=== PATIENT | male | born 1990 | race Caucasian/White ===

== ENCOUNTER 2020-11-12 16:42 | Emergency (ER) | payer OTHER ==
[~2020-11-12] VITALS: Ht 167.6 cm; Wt 81.7 kg
[~2020-11-12 16:42] MED LIST: IBUP400 PO; Ultram50 MG PO
== END 2020-11-12 16:53 | disposition home or self-care (01) ==
LOC: ER 16:42
DX: S01.01XD Laceration without foreign body of scalp, subsequent encounter (principal); F17.210 Nicotine dependence, cigarettes, uncomplicated; Z88.0 Allergy status to penicillin; Z88.5 Allergy status to narcotic agent; W45.8XXD Other foreign body or object entering through skin, subsequent encounter

== ENCOUNTER 2021-09-28 20:42 | Emergency (ER) | payer OTHER ==
[~2021-09-28] VITALS: Ht 182.9 cm; Wt 74.8 kg
== END 2021-09-28 21:33 | disposition home or self-care (01) ==
LOC: ER 20:42
DX: H60.92 Unspecified otitis externa, left ear (principal); F17.210 Nicotine dependence, cigarettes, uncomplicated; Z88.5 Allergy status to narcotic agent; Z88.0 Allergy status to penicillin
CPT/HCPCS: 99282; A9270

== ENCOUNTER 2021-12-05 18:32 | Emergency (ER) | payer OTHER ==
[~2021-12-05] VITALS: Ht 177.8 cm; Wt 86.2 kg
[2021-12-05] MEDS ORDERED: Diflucan100 MG PO (19:56)
[2021-12-05] MEDS ORDERED: NYAMYC15 G2 TOP (19:56)
== END 2021-12-05 20:13 | disposition home or self-care (01) ==
LOC: ER 18:32
DX: B35.6 Tinea cruris (principal); F17.200 Nicotine dependence, unspecified, uncomplicated; Z88.0 Allergy status to penicillin; Z88.5 Allergy status to narcotic agent
CPT/HCPCS: A9270

== ENCOUNTER 2022-01-03 04:36 | Emergency (ER) | payer OTHER ==
[~2022-01-03] VITALS: Ht 175.3 cm; Wt 72.6 kg
[~2022-01-03 04:36] MED LIST changes: +Diflucan100 MG PO; +NYAMYC15 G2 TOP
[2022-01-03] MEDS ORDERED: ALEVAZOL56.7 G1 TOP (05:09)
[2022-01-03] MEDS ORDERED: Diflucan150 MG PO (05:09)
== END 2022-01-03 05:27 | disposition home or self-care (01) ==
LOC: ER 04:36
DX: Z76.0 Encounter for issue of repeat prescription (principal); B35.6 Tinea cruris; F17.200 Nicotine dependence, unspecified, uncomplicated; Z88.0 Allergy status to penicillin; Z88.5 Allergy status to narcotic agent
CPT/HCPCS: 99281

== ENCOUNTER 2022-01-10 10:38 | Emergency (ER) | payer OTHER ==
[~2022-01-10] VITALS: Ht 172.7 cm; Wt 88.5 kg
[~2022-01-10 10:38] MED LIST changes: +ALEVAZOL56.7 G1 TOP; +Diflucan150 MG PO
[2022-01-10] MEDS ORDERED: Diflucan150 MG PO ×4 (11:05→11:53)
[2022-01-10] MEDS ORDERED: ALEVAZOL56.7 G1 TOP ×4 (11:05→11:53)
== END 2022-01-10 11:22 | disposition home or self-care (01) ==
LOC: ER 10:38
DX: Z76.0 Encounter for issue of repeat prescription (principal); B35.6 Tinea cruris; F17.200 Nicotine dependence, unspecified, uncomplicated; Z88.5 Allergy status to narcotic agent; Z88.0 Allergy status to penicillin
CPT/HCPCS: 99282

== ENCOUNTER 2022-01-17 05:11 | Emergency (ER) | payer OTHER ==
[2022-01-17] MEDS ORDERED: NYAMYC15 G1 TOP (06:48)
== END 2022-01-17 07:12 | disposition home or self-care (01) ==
LOC: ER 05:11
DX: Z76.0 Encounter for issue of repeat prescription (principal); B35.6 Tinea cruris; F17.210 Nicotine dependence, cigarettes, uncomplicated; Z88.5 Allergy status to narcotic agent; Z88.0 Allergy status to penicillin; Z79.899 Other long term (current) drug therapy
CPT/HCPCS: 99281

== ENCOUNTER 2022-01-23 17:03 | Emergency (ER) | payer OTHER ==
[~2022-01-23] VITALS: Ht 177.8 cm; Wt 81.7 kg
[~2022-01-23 17:03] MED LIST changes: +NYAMYC15 G1 TOP
== END 2022-01-23 21:31 | disposition left against medical advice (07) ==
LOC: ER 17:03
DX: L98.9 Disorder of the skin and subcutaneous tissue, unspecified (principal); Z53.21 Procedure and treatment not carried out due to patient leaving prior to being seen by health care provider
CPT/HCPCS: 99281

== ENCOUNTER 2023-01-29 12:39 | Emergency (ER) | payer OTHER ==
[~2023-01-29] VITALS: Ht 175.3 cm; Wt 74.8 kg
[~2023-01-29 12:39] MED LIST changes: +Percocet 5-3251 EACH PO
[2023-01-29 13:51] LABS: BASOPHILS ABSOLUTE AUTO 0.08 K/mm3 (0.00-0.23); BASOPHILS PERCENT AUTO 1 % (0-2); EOSINOPHILS ABSOLUTE AUTO 0.19 K/mm3 (0.00-0.68); EOSINOPHILS PERCENT AUTO 2 % (0-6); Hematocrit 39.5 % (37.0-53.0); Hemoglobin 13.4 g/dL (13.5-17.5); IMMATURE GRAN ABSOLUTE AUTO 0.02 K/mm3 (0.00-0.10); IMMATURE GRAN PERCENT AUTO 0 % (0-1); LYMPHOCYTES ABSOLUTE AUTO 3.52 K/mm3 (0.84-5.20); LYMPHOCYTES PERCENT AUTO 35 % (21-46); MONOCYTES ABSOLUTE AUTO 0.76 K/mm3 (0.16-1.47); MONOCYTES PERCENT AUTO 8 % (4-13); Mean Corpuscular HGB 31.8 pg (26.0-34.0); Mean Corpuscular HGB Conc 33.9 g/dL (31.5-36.5); Mean Corpuscular Volume 94 fL (80-100); Mean Platelet Volume 11.4 fL (9.1-12.4); NEUTROPHILS PERCENT AUTO 55 % (41-73); Platelet Count 265 K/mm3 (150-400); RDW Coefficient Variation 12.2 % (11.7-14.2); RDW Standard Deviation 42.4 fL (35.1-46.3); Red Blood Cell Count 4.21 M/mm3 (4.30-5.90); White Blood Cell Count 10.07 K/mm3 (4.00-11.30)
[2023-01-29 14:03] LABS: Albumin, Blood 3.8 g/dL (3.4-5.0); Albumin/Globulin Ratio 1.1 (0.8-1.8); Bilirubin, Total 0.4 mg/dL (0.1-1.0); Bun/Creatinine Ratio 13.9 (12.0-20.0); Calcium, Blood 8.7 mg/dL (8.5-10.1); Creatinine, Blood 1.37 mg/dL (0.60-1.20); Globulin, Blood 3.6 g/dL (2.2-4.0); Potassium, Blood 3.2 mmol/L (3.5-5.5); Total Protein, Blood 7.4 g/dL (6.4-8.2)
[2023-01-29] MEDS ORDERED: NARCAN4 M1 (14:44)
[2023-01-29 14:54] VITALS: BP 100/54
== END 2023-01-29 15:14 | disposition home or self-care (01) ==
LOC: ER 12:39
PROVIDERS: Emergency Medicine
DX: T40.2X1A Poisoning by other opioids, accidental (unintentional), initial encounter (principal); F10.129 Alcohol abuse with intoxication, unspecified; F17.210 Nicotine dependence, cigarettes, uncomplicated; Y90.5 Blood alcohol level of 100-119 mg/100 ml; Z88.0 Allergy status to penicillin; Z88.5 Allergy status to narcotic agent
CPT/HCPCS: 80053; 82550; 85025; 99284; G0480; J7030

== ENCOUNTER 2024-05-12 15:27 | Emergency (ER) | payer OTHER ==
[~2024-05-12] VITALS: Ht 167.6 cm; Wt 79.4 kg
[~2024-05-12 15:27] MED LIST changes: +Cleocin HCl150 MG PO; +NARCAN4 M1
[2024-05-12 16:20] VITALS: BP 132/90
[2024-05-12] MEDS ORDERED: Ketoconazole120 ML TOP (16:28)
== END 2024-05-12 16:36 | disposition home or self-care (01) ==
LOC: ER 15:27
DX: B35.0 Tinea barbae and tinea capitis (principal); F17.200 Nicotine dependence, unspecified, uncomplicated; Z88.0 Allergy status to penicillin; Z88.5 Allergy status to narcotic agent
CPT/HCPCS: 99282

== ENCOUNTER 2024-06-03 03:47 | Emergency (ER) | payer OTHER ==
[~2024-06-03] VITALS: Ht 177.8 cm; Wt 83.9 kg
[~2024-06-03 03:47] MED LIST changes: +Ketoconazole120 ML TOP
[2024-06-03 04:03] VITALS: BP 133/73
== END 2024-06-03 07:06 | disposition home or self-care (01) ==
LOC: ER 03:47
DX: F28 Other psychotic disorder not due to a substance or known physiological condition (principal); F15.929 Other stimulant use, unspecified with intoxication, unspecified; F17.210 Nicotine dependence, cigarettes, uncomplicated; Z79.899 Other long term (current) drug therapy; Z88.0 Allergy status to penicillin; Z88.5 Allergy status to narcotic agent
CPT/HCPCS: 99284

== ENCOUNTER 2024-06-21 12:54 | Emergency (ER) | payer OTHER ==
[~2024-06-21] VITALS: Ht 167.6 cm; Wt 72.6 kg
[2024-06-21 13:13] VITALS: BP 132/89
[2024-06-21] MEDS ORDERED: Ketoconazole120 ML TOP (13:19)
== END 2024-06-21 13:15 | disposition home or self-care (01) ==
LOC: ER 12:54
DX: F22 Delusional disorders (principal); F15.90 Other stimulant use, unspecified, uncomplicated; F17.210 Nicotine dependence, cigarettes, uncomplicated; Z88.0 Allergy status to penicillin; Z88.5 Allergy status to narcotic agent; Z88.1 Allergy status to other antibiotic agents; Z79.2 Long term (current) use of antibiotics; Z79.891 Long term (current) use of opiate analgesic
CPT/HCPCS: 99282

== ENCOUNTER 2024-07-04 14:50 | Emergency (ER) | payer OTHER ==
[~2024-07-04] VITALS: Ht 165.1 cm; Wt 81.7 kg
[2024-07-04 14:53] VITALS: BP 138/102
[2024-07-04] MEDS ORDERED: CALAMINE LOTIO177 ML TOP (15:00)
== END 2024-07-04 15:01 | disposition home or self-care (01) ==
LOC: ER 14:50
DX: L29.9 Pruritus, unspecified (principal); F17.200 Nicotine dependence, unspecified, uncomplicated; Z88.0 Allergy status to penicillin; Z88.5 Allergy status to narcotic agent; Z79.2 Long term (current) use of antibiotics; Z79.899 Other long term (current) drug therapy
CPT/HCPCS: 99282

== ENCOUNTER 2024-07-18 15:17 | Emergency (ER) | payer OTHER ==
[~2024-07-18] VITALS: Ht 177.8 cm; Wt 72.6 kg
[~2024-07-18 15:17] MED LIST changes: +CALAMINE LOTIO177 ML TOP
[2024-07-18 15:48] VITALS: BP 137/95
== END 2024-07-18 16:17 | disposition home or self-care (01) ==
LOC: ER 15:17
DX: L29.9 Pruritus, unspecified (principal); Z88.0 Allergy status to penicillin; Z88.5 Allergy status to narcotic agent; Z88.9 Allergy status to unspecified drugs, medicaments and biological substances; Z16.32 Resistance to antifungal drug(s); Z79.2 Long term (current) use of antibiotics
CPT/HCPCS: 99282

== ENCOUNTER 2024-07-28 14:40 | Emergency (ER) | payer OTHER ==
[~2024-07-28] VITALS: Ht 167.6 cm; Wt 83.9 kg
[2024-07-28 14:50] VITALS: BP 116/55
[2024-07-28] MEDS ORDERED: NIX59 ML TOP (14:53)
== END 2024-07-28 15:34 | disposition home or self-care (01) ==
LOC: ER 14:40
DX: B85.0 Pediculosis due to Pediculus humanus capitis (principal); Z88.0 Allergy status to penicillin; Z88.5 Allergy status to narcotic agent; Z79.899 Other long term (current) drug therapy; F17.200 Nicotine dependence, unspecified, uncomplicated
CPT/HCPCS: 99282

== ENCOUNTER 2024-08-06 09:32 | Emergency (ER) | payer OTHER ==
[~2024-08-06] VITALS: Ht 185.4 cm; Wt 81.7 kg
[~2024-08-06 09:32] MED LIST changes: +NIX59 ML TOP
[2024-08-06 09:59] VITALS: BP 127/83
[2024-08-06] MEDS ORDERED: IBUP200 PO (10:04)
== END 2024-08-06 10:10 | disposition home or self-care (01) ==
LOC: ER 09:32
DX: L21.9 Seborrheic dermatitis, unspecified (principal); B35.0 Tinea barbae and tinea capitis; Z59.89 Other problems related to housing and economic circumstances; F17.200 Nicotine dependence, unspecified, uncomplicated; Z88.0 Allergy status to penicillin; Z88.5 Allergy status to narcotic agent; Z79.1 Long term (current) use of non-steroidal anti-inflammatories (NSAID)
CPT/HCPCS: 99282

== ENCOUNTER 2024-08-12 17:24 | Emergency (ER) | payer OTHER ==
[~2024-08-12] VITALS: Ht 167.6 cm; Wt 81.7 kg
[~2024-08-12 17:24] MED LIST changes: +IBUP200 PO
[2024-08-12 17:41] VITALS: BP 119/71
== END 2024-08-12 17:49 | disposition home or self-care (01) ==
LOC: ER 17:24
DX: L21.0 Seborrhea capitis (principal); F17.200 Nicotine dependence, unspecified, uncomplicated; Z88.0 Allergy status to penicillin; Z88.5 Allergy status to narcotic agent; Z79.1 Long term (current) use of non-steroidal anti-inflammatories (NSAID)
CPT/HCPCS: 99282

== ENCOUNTER 2024-08-30 19:56 | Emergency (ER) | payer OTHER ==
[~2024-08-30] VITALS: Ht 167.6 cm; Wt 59.0 kg
[2024-08-30 20:34] VITALS: BP 122/92
== END 2024-08-30 21:44 | disposition home or self-care (01) ==
LOC: ER 19:56
DX: R20.2 Paresthesia of skin (principal); F15.10 Other stimulant abuse, uncomplicated; Z88.0 Allergy status to penicillin; Z88.5 Allergy status to narcotic agent; F17.200 Nicotine dependence, unspecified, uncomplicated
CPT/HCPCS: 99282